=== PATIENT | male | born 1955 | race Caucasian/White ===

== ENCOUNTER → 2018-02-10 07:51 | Outpatient (CLI) | payer BC, SELFPAY ==
--- NOTE | 2018-02-10 08:13 | US_ITS ---
US Arterial Ankle Brachial Ind History: Bilateral claudication, hypertension, hyperlipidemia what is a normal toe brachial index] breast from a normal pressure is expected ORDERING PHYSICIAN: Zabrina Vizcarra MD PATIENT AGE: 62 years TECHNIQUE: Segmental pressures obtained of both right and left leg. These are compared to brachial blood pressure to yield index at each level sampled including summary SOHA. The data sheets from the procedure are available in PACS FINDINGS Rest study only performed today No prior studies available for comparison. Blood pressures reported are in millimeters mercury. RIGHT LEG SOHA = 1.2. RIGHT LEG TBI=0.7 Brachial BP: 143 Thigh BP: 146 Calf BP: 163 Ankle PT: 171 Ankle DP : 162 Digit =98 LEFT LEG SOHA = 1.2 LEFT LEG TBI= 0.6 Brachial BPD: 145 Thigh BP: 140 Calf BP: 172 Ankle PT:176 Ankle DP: 163 Digit = 81 Pulses and waveforms: Normal IMPRESSION: The ABIs as reported above are within normal limits. Waveforms and pulses are also unremarkable. The left tibia is slightly low at 0.6 with normal being greater than 0.65 which may indicate mild small vessel disease
--- NOTE | 2018-02-10 08:46 | US_ITS ---
US aorta HISTORY: Claudication of the lower extremities ITS.REASON: BILATERAL PAIN LOWER EXTREMITIES FINDINGS: The abdominal aorta has an unremarkable appearance. No evidence of aneurysm or obstruction. Proximal common iliacs are unremarkable. IMPRESSION: No evidence of abdominal aortic aneurysm
== END ==
PROVIDERS: PCP Family Medicine; Visit Provider Family Medicine
DX: M79.604 Pain in right leg (principal); M79.605 Pain in left leg
CPT/HCPCS: 76770; 93922

== ENCOUNTER → 2021-01-14 14:39 | Outpatient (CLI) | payer BC, SELFPAY ==
[2021-01-14 16:12] LABS: Basophils % 0.2 % (0.1-2.0); Eosinophils % 0.6 % (0.1-12.0); Lymphocytes # 0.4 K/mm3 (0.7-4.5); Lymphocytes % 7.5 % (10-50); Mean Corpuscular HGB Conc 32.5 g/dL (31.8-35.4); Mean Corpuscular Hemoglobin 29.1 pg (27.0-31.2); Mean Corpuscular Volume 89.5 fl (80-94); Mean Platelet Volume 8.4 fl (7.4-10.4); Monocytes # 0.3 K/mm3 (0.1-1.0); Monocytes % 6.5 % (1.7-9.3); Neutrophils # 4.4 K/mm3 (1.8-7.8); Neutrophils % 85.2 % (37.0-80.0); Platelet Count 171 K/mm3 (142-424); Red Blood Count 4.47 M/mm3 (4.60-6.20); Red Cell Distribution Width 14.1 % (11.5-17.5); White Blood Count 5.1 K/mm3 (4.8-10.8)
[2021-01-14 16:15] LABS: MANUAL DIFFERENTIAL MANUAL DIFFERENTIAL (MANUAL DIFF)
[2021-01-14 17:35] LABS: Chloride 93 mmol/L (98-107); Potassium 4.2 mmoL/L (3.5-5.1); Sodium 130 mmol/L (136-145)
[2021-01-14 17:38] LABS: Alanine Aminotransferase 138 U/L (12-78); Alkaline Phosphatase 136 U/L (38-126); Amylase 44 U/L (30-110); Anion Gap 17.2 mEq/L (5-15); Aspartate Amino Transferase 192 U/L (17-59); Bilirubin,Total 1.3 mg/dl (0.2-1.3); Blood Urea Nitrogen 41 mg/dl (9-20); Calcium 9.9 mg/dl (8.4-10.2); Carbon Dioxide 24 mmol/L (22.0-30.0); Estimated Glomerular Filt Rate 30 ml/min (>60); GFR (African American) 37 ML/MIN (>60); Glucose 143 mg/dl (74-100); Lipase 222 U/L (23-300)
[2021-01-14 17:39] LABS: Albumin Level 3.5 g/dl (3.5-5.0); Albumin/Globulin Ratio 1.5 (1.1-1.8); Globulin 2.4 g/dL (1.3-3.2); Total Protein,Serum 5.9 g/dl (6.3-8.2)
[2021-01-14 18:05] LABS: Lymphocytes % 8 % (10-50); Monocytes % 12 % (2-9); Neutrophils % 78 % (42-76); Total Cells Counted 100
[2021-01-14 18:06] LABS: Anisocytosis 1+; Hypochromasia 1+; Platelet Estimate Normal
== END ==
PROVIDERS: PCP Nurse Practitioner; Visit Provider Nurse Practitioner
DX: Z11.52 Encounter for screening for COVID-19 (principal); U07.1 COVID-19; R50.9 Fever, unspecified; R10.84 Generalized abdominal pain
CPT/HCPCS: 80053; 82150; 83690; 85007; 85025; 86677; C9803; U0003; U0005

== ENCOUNTER 2021-01-14 18:55 | Emergency (ER) | payer BC, SELFPAY ==
[2021-01-14 21:49] VITALS: BP 110/65; PULSE 78; RESP 24; TEMP 37.7; O2SAT 94; BMI 32.5
--- NOTE | 2021-01-14 21:57 | CT_ITS ---
PROCEDURE INFORMATION: Exam: CT Abdomen And Pelvis Without Contrast Exam date and time: 01/14/2021 9:57 PM Age: 65 years old Clinical indication: Localized; Other: Mid abdominal pain since Thursday. ; Additional info: Abd pain TECHNIQUE: Imaging protocol: Computed tomography of the abdomen and pelvis without contrast. Radiation optimization: All CT scans at this facility use at least one of these dose optimization techniques: automated exposure control; mA and/or kV adjustment per patient size (includes targeted exams where dose is matched to clinical indication); or iterative reconstruction. COMPARISON: AORTA US aorta 02/10/2018 8:46 AM FINDINGS: Heart: Trace pericardial fluid. Liver: Diffuse low-attenuation of the liver. No mass. Gallbladder and bile ducts: No calcified stones. No ductal dilation. Pancreas: Parenchymal enhancement is not evaluated without contrast. No ductal dilation. Spleen: Parenchymal enhancement is not evaluated without contrast. No splenomegaly. Adrenal glands: No mass. Kidneys and ureters: Fullness of the left renal pelvis without radiodense calcification. Normal ureters. Limited evaluation of renal parenchyma without contrast. Stomach and bowel: Diverticulosis coli without evidence for diverticulitis. Appendix: No evidence of appendicitis. Intraperitoneal space: No free air. No significant fluid collection. Vasculature: Calcified atherosclerosis. No aneurysm. Lymph nodes: No enlarged lymph nodes. Urinary bladder: No acute abnormality. Reproductive: Prostate is enlarged measuring 5.9 cm. Bones/joints: Degenerative changes of the spine. No fracture. Soft tissues: 2.3 x 1.9 cm fat containing right inguinal hernia. IMPRESSION: 1. Fullness of the left renal pelvis without radiodense calcification. Correlation with possible UPJ obstruction recommended. 2. Trace pericardial fluid. 3. Diverticulosis coli without evidence for diverticulitis. 4. Prostate is enlarged measuring 5.9 cm. 5. 2.3 x 1.9 cm fat containing right inguinal hernia.
[2021-01-14 22:11] LABS: Coronavirus 19, PCR Not Detected (NotDetected); Influenza A, PCR Not Detected (NotDetected); Influenza B, PCR Not Detected (NotDetected)
[2021-01-14 22:15] LABS: Basophils % 0.4 % (0.1-2.0); Eosinophils # 0.1 K/mm3 (0.0-0.4); Eosinophils % 1.1 % (0.1-12.0); Hematocrit 42.1 % (42.0-52.0); Hemoglobin 14.1 g/dL (14.1-18.0); Lymphocytes # 0.5 K/mm3 (0.7-4.5); Lymphocytes % 8.1 % (10-50); Mean Corpuscular HGB Conc 33.4 g/dL (31.8-35.4); Mean Corpuscular Hemoglobin 29.7 pg (27.0-31.2); Mean Corpuscular Volume 89.1 fl (80-94); Mean Platelet Volume 8.3 fl (7.4-10.4); Monocytes # 0.5 K/mm3 (0.1-1.0); Monocytes % 7.5 % (1.7-9.3); Neutrophils # 5.2 K/mm3 (1.8-7.8); Neutrophils % 82.9 % (37.0-80.0); Platelet Count 189 K/mm3 (142-424); Red Blood Count 4.73 M/mm3 (4.60-6.20); Red Cell Distribution Width 14.2 % (11.5-17.5); White Blood Count 6.3 K/mm3 (4.8-10.8)
[2021-01-14 22:22] LABS: Chloride 91 mmol/L (98-107); Sodium 131 mmol/L (136-145)
[2021-01-14 22:24] LABS: Alanine Aminotransferase 187 U/L (12-78); Amylase 58 U/L (30-110); Aspartate Amino Transferase 217 U/L (17-59); Blood Urea Nitrogen 37 mg/dl (9-20); Creatinine Clearance Estimated 40 mL/min (50-200); Estimated Glomerular Filt Rate 29 ml/min (>60); GFR (African American) 35 ML/MIN (>60)
[2021-01-14 22:25] LABS: Albumin Level 4.1 g/dl (3.5-5.0); Albumin/Globulin Ratio 1.2 (1.1-1.8); Alkaline Phosphatase 162 U/L (38-126); Bilirubin,Total 1.6 mg/dl (0.2-1.3); Calcium 10.6 mg/dl (8.4-10.2); Carbon Dioxide 26 mmol/L (22.0-30.0); Globulin 3.5 g/dL (1.3-3.2); Glucose 137 mg/dl (74-100); Lipase 194 U/L (23-300); Total Protein,Serum 7.6 g/dl (6.3-8.2)
[2021-01-14 22:41] LABS: Erythrocyte Sedimentation Rate 70 mm/hr (0-20)
[2021-01-14 22:43] LABS: C-Reactive Protein 286.4 mg/L (0-4)
--- NOTE | 2021-01-15 01:13 | HMH.EDRECH ---
ED Disposition Clinical Impression: MAN (acute kidney injury), Elevated liver enzymes Abdominal pain Qualifiers: Abdominal location: right upper quadrant Qualified Code(s): R10.11 - Right upper quadrant pain Disposition: Home, Self-Care Condition on Discharge: Good Instructions: DI for Abdominal Pain-Adult Additional Instructions: fluids and hold lisinopril and call pcp in am Referrals: Daisha Hendrickson APRN [Primary Care Provider] - - Critical Care Critical Care Time: No Attestation: On 01/14/21, the high probability of a clinically significant, sudden or life threatening deterioration of the following system(s) required my full and direct attention, intervention and personal management. The time I documented below is in addition to time spent performing reported procedures but includes the following listed in this critical care notation. Medical Decision Making - Medical Records Medical records reviewed: Yes: I reviewed the patient's medical records. - [place] Inquiry Pt receiving controlled substance: No Vital Signs: 01/14/21 21:49 Temperature 99.8 F H Temperature Source Oral Pulse Rate [Right Brachial] 78 Respiratory Rate 24 Blood Pressure [Right Arm] 110/65 Blood Pressure Mean [Right Arm] 80 Blood Pressure Source [Right Arm] Automatic Cuff Blood Pressure Position [Right Arm] Sitting 02 Sat by Pulse Oximetry 94 L Oxygen Delivery Method Room Air - Lab Data Lab results reviewed: Yes: I reviewed the patient's lab results. Lab Results 01/14/21 21:52: WBC 6.3, RBC 4.73, Hgb 14.1, Hct 42.1, MCV 89.1, MCH 29.7, MCHC 33.4, RDW 14.2, Plt Count 189, MPV 8.3, Neut % (Auto) 82.9 H, Lymph % (Auto) 8.1 L, [place] % (Auto) 7.5, Eos % (Auto) 1.1, Baso % (Auto) 0.4, Neut # (Auto) 5.2, Lymph # (Auto) 0.5 L, [place] # (Auto) 0.5, Eos # (Auto) 0.1, Baso # (Auto) 0.0, ESR 70 H 01/14/21 21:52: Sodium 131 L, Potassium 4.0, Chloride 91 L, Carbon Dioxide 26, Anion Gap 18.0 H, BUN 37 H, Creatinine 2.30 H, Estimated Creat Clear 40, Estimated GFR 29 L, Est GFR ( Amer) 35 L, Glucose 137 H, Calcium 10.6 H, Total Bilirubin 1.6 H, AST 217 H, ALT 187 H D, Alkaline Phosphatase 162 H, C-Reactive Protein 286.4 H, Total Protein 7.6 D, Albumin 4.1 D, Globulin 3.5 H, Albumin/Globulin Ratio 1.2, Amylase 58 D, Lipase 194 01/14/21 21:52: SARS-CoV-2 (PCR) Not detected, Influenza A Untype (PCR) Not detected, Influenza Type B (PCR) Not detected Result diagrams: 01/14/21 21:52 01/14/21 21:52 Orders (Tests/Meds): ED MEDICATIONS Generic Name Dose Route Start Last Admin Trade Name Freq PRN Reason Stop Dose Admin Sodium Chloride 1,000 mls @ 999 mls/hr 01/14/21 22:00 01/14/21 22:06 Sod Chlor 0.9% 1000ml Bag IV 01/14/21 23:00 999 mls/hr .Q1H1M BETO Administration Discontinued Medications Generic Name Dose Route Start Last Admin Trade Name Freq PRN Reason Stop Dose Admin Dexamethasone Sodium Phosphate 10 mg 01/14/21 21:59 01/14/21 22:06 Dexamethasone 4mg/Ml 5ml Mdv IV 01/14/21 22:00 10 mg ONCE ONE Administration Ketorolac Tromethamine 30 mg 01/14/21 21:58 01/14/21 22:06 Ketorolac 30mg/Ml Vial IV 01/14/21 21:59 30 mg ONCE ONE Administration Ondansetron HCl 4 mg 01/14/21 21:58 01/14/21 22:06 Ondansetron 4mg/2ml Vial IV 01/14/21 21:59 4 mg ONCE ONE Administration ORDERS Category Date Time Status Urinalysis and Microscopic Stat Lab 01/14/21 21:57 Ordered - CT Data CT Scan: Abdomen, Pelvis Time Received: 01:[address] Reviewed: Yes: I have viewed the radiologist's interpretation Preliminary Findings: Abnormal Medical Decision Narrative: possible gb dis with nonspecific ct - but has abn labs and will ask pt to hold lisinoprril and call pcp in am for more eval Recheck HPI - General Chief Complaint: Recheck/Abnormal Lab/Rx Stated Complaint: blood work # Were bad and ne ct Scan Time Seen by Provider: 01/15/21 01:13 Mode of Arrival: Family Vehicle Source of Informati
[2021-01-15 01:43] VITALS: BP 107/71; PULSE 73; RESP 18; TEMP 36.7; O2SAT 96
== END 2021-01-15 01:47 | disposition home or self-care (01) ==
PROVIDERS: Emergency Provider Emergency Medicine; PCP Nurse Practitioner
DX: N17.9 Acute kidney failure, unspecified (principal); R10.11 Right upper quadrant pain; R94.5 Abnormal results of liver function studies
CPT/HCPCS: 74176; 80053; 82150; 83690; 85025; 85651; 86140; 96365; 96375; 99283; C9803; J2405; U0003; U0005

== ENCOUNTER → 2021-01-15 13:37 | Outpatient (CLI) | payer BC, SELFPAY ==
[2021-01-15 14:19] LABS: Adenovirus,PCR Not Detected (NotDetected); Bordetella Pertussis Not Detected (NotDetected); Chlamydophila Pneumoniae, PCR Not Detected (NotDetected); Coronavirus 19, PCR Not Detected (NotDetected); Coronavirus 229E Not Detected (NotDetected); Coronavirus NL63 Not Detected (NotDetected); Coronavirus OC43 Not Detected (NotDetected); Coronovirus HKU1,PCR Not Detected (NotDetected); Human Metapneumovirus Not Detected (NotDetected); Influenza A, PCR Not Detected (NotDetected); Influenza AH1, 2009 Not Detected (NotDetected); Influenza AH1, PCR Not Detected (NotDetected); Influenza AH3,PCR Not Detected (NotDetected); Influenza B, PCR Not Detected (NotDetected); Mycoplasma Pneumoniae, PCR Not Detected (NotDetected); Parainfluenza 1, PCR Not Detected (NotDetected); Parainfluenza 2, PCR Not Detected (NotDetected); Parainfluenza 3, PCR Not Detected (NotDetected); Parainfluenza 4, PCR Not Detected (NotDetected); Respiratory Syncytial Virus Not Detected (NotDetected); Rhinovirus/Enterovirus Not Detected (NotDetected)
[2021-01-15 14:41] LABS: Alanine Aminotransferase 179 U/L (12-78); Albumin Level 3.6 g/dl (3.5-5.0); Albumin/Globulin Ratio 1.2 (1.1-1.8); Alkaline Phosphatase 137 U/L (38-126); Amylase 61 U/L (30-110); Anion Gap 17.9 mEq/L (5-15); Aspartate Amino Transferase 162 U/L (17-59); Bilirubin,Total 0.9 mg/dl (0.2-1.3); Blood Urea Nitrogen 43 mg/dl (9-20); Calcium 9.5 mg/dl (8.4-10.2); Carbon Dioxide 23 mmol/L (22.0-30.0); Chloride 90 mmol/L (98-107); Estimated Glomerular Filt Rate 38 ml/min (>60); GFR (African American) 46 ML/MIN (>60); Globulin 3.1 g/dL (1.3-3.2); Glucose 291 mg/dl (74-100); Lipase 211 U/L (23-300); Potassium 3.9 mmoL/L (3.5-5.1); Sodium 127 mmol/L (136-145); Total Protein,Serum 6.7 g/dl (6.3-8.2)
[2021-01-15 14:55] LABS: Basophils % 0.1 % (0.1-2.0); Eosinophils % 0.1 % (0.1-12.0); Hematocrit 37.5 % (42.0-52.0); Lymphocytes # 0.4 K/mm3 (0.7-4.5); Lymphocytes % 5.6 % (10-50); Mean Corpuscular Hemoglobin 29.6 pg (27.0-31.2); Mean Corpuscular Volume 89.7 fl (80-94); Mean Platelet Volume 9.4 fl (7.4-10.4); Monocytes # 0.3 K/mm3 (0.1-1.0); Monocytes % 4.9 % (1.7-9.3); Neutrophils % 89.2 % (37.0-80.0); Platelet Count 192 K/mm3 (142-424); Red Blood Count 4.18 M/mm3 (4.60-6.20); Red Cell Distribution Width 14.7 % (11.5-17.5); White Blood Count 6.7 K/mm3 (4.8-10.8)
[2021-01-15 15:02] LABS: MANUAL DIFFERENTIAL MANUAL DIFFERENTIAL (MANUAL DIFF)
[2021-01-15 16:36] LABS: Lymphocytes % 13 % (10-50); Monocytes % 8 % (2-9); Neutrophils % 79 % (42-76); Total Cells Counted 100
[2021-01-15 16:37] LABS: Anisocytosis 1+; Hypochromasia 1+; Platelet Estimate Normal
[2021-01-15 17:59] LABS: Hemoglobin 12.2 g/dL (14.1-18.0)
[2021-01-17 06:46] LABS: Hep A Ab, IgM Negative (Negative); Hepatitis B Core Antibody IgM Negative (Negative); Hepatitis B Surface Antigen Negative (Negative); Hepatitis C Antibody <0.1 s/co ratio (0.0-0.9)
== END ==
PROVIDERS: PCP Nurse Practitioner; Visit Provider Nurse Practitioner
DX: Z20.822 Contact with and (suspected) exposure to COVID-19 (principal); R94.5 Abnormal results of liver function studies
CPT/HCPCS: 36415; 80053; 80074; 82150; 83690; 85007; 85025; 86677; 87581; 87633; 87798

== ENCOUNTER → 2021-01-18 08:51 | Outpatient (CLI) | payer BC, SELFPAY ==
--- NOTE | 2021-01-18 08:53 | US_ITS ---
PROCEDURE: US ABDOMEN LIMITED CLINICAL INDICATION: PERIUMBILICAL ABD PAIN COMPARISON: CT CT ABDOMEN PELVIS WO CON from 01/14/2021 FINDINGS: PANCREAS: Pancreas is not well delineated due to overlying bowel gas. CT or MRI without and with contrast with pancreatic protocol may provide further evaluation if clinically desired. LIVER: Diffuse increased echogenicity of the liver with poor through transmission of sound consistent with hepatic steatosis. There is appropriate direction of blood flow within non dilated portal vein. A 2 cm hypoechoic areas present in the central aspect of the right hepatic lobe. There is enhanced through transmission of sound. This area is fairly well defined and is anterior to the portal vein. RIGHT KIDNEY: Unremarkable. Normal size and echogenicity. No hydronephrosis GALLBLADDER: No gallstones, gallbladder wall thickening, pericholecystic fluid, or biliary dilatation. Gallbladder is slightly distended. Common bile duct is 2 mm in diameter. IMPRESSION: Mildly distended gallbladder. No gallstones apparent. No biliary dilatation. Indeterminate 2 cm hypoechoic lesion of the central aspect of the liver. MRI with hemangioma protocol may provide further evaluation. Dictated by: Mejia Morocho MD 01/18/2021 13:39 Mejia Morocho MD in [place] 01/18/2021 13:39
== END ==
PROVIDERS: PCP Nurse Practitioner; Visit Provider Nurse Practitioner
DX: R10.33 Periumbilical pain (principal)
CPT/HCPCS: 76705

== ENCOUNTER → 2021-01-30 07:41 | Outpatient (CLI) | payer BC, SELFPAY ==
--- NOTE | 2021-01-30 07:49 | CT_ITS ---
PROCEDURE: CT ABDOMEN WO/W CON CLINICAL HISTORY: ABN CT SCAN KIDNEY,ELEVATED LIPASE COMPARISON: CT CT ABDOMEN PELVIS WO CON from 01/14/2021 US US ABDOMEN LIMITED from 01/18/2021 TECHNIQUE: 75 mL Isovue 370. Images performed without and with contrast with delayed images Axial images obtained with sagittal and coronal reformats. All CT scans at the facility use one or more dose reduction, viz: automated exposure control, ma/kV adjustment per patient size (including targeted exams where dose is matched to indication, i.e. head), or iterative reconstruction technique. FINDINGS: There is minimal thickening of the pericardium anteriorly not significantly changed The liver has an unremarkable appearance. No areas of enhancement or lack of enhancement apparent. There is a small small periportal lymph nodes measuring 2.1 x 1.2 cm which may have been the abnormality noted on the ultrasound. The gallbladder is distended. No renal or ureteral calculi. No renal mass. The spleen, adrenal glands, and pancreas have an unremarkable appearance. No intestinal obstruction or free air. Unremarkable appendix. There is some mild stranding of the pericolic fat in the left lower quadrant. Mild diverticulitis is a consideration. Colonic diverticulosis is present involving the splenic flexure descending colon and sigmoid colon. There is mild nonspecific thickening of the urinary bladder wall. The prostate is enlarged at 5.2 by 5 cm. No acute bony findings. IMPRESSION: 1. No liver lesion evident. The abnormality noted on the ultrasound may be due to a periportal lymph node. 2. Possible mild diverticulitis in the distal descending colon with colonic diverticulosis noted. 3. Enlarged prostate with mild thickening of the urinary bladder wall. Dictated by: Mejia Morocho MD 01/31/2021 18:41 Mejia Morocho MD in [facility] 01/31/2021 18:41
[2021-01-30 09:11] LABS: Blood Urea Nitrogen 8 mg/dl (9-20); Estimated Glomerular Filt Rate 98 ml/min (>60); GFR (African American) 118 ML/MIN (>60)
[2021-01-31 18:16] LABS: H. pylori Breath Test Positive (Negative)
== END ==
PROVIDERS: PCP Nurse Practitioner; Visit Provider Family Medicine
DX: R10.13 Epigastric pain (principal); R10.84 Generalized abdominal pain; R50.9 Fever, unspecified; R74.8 Abnormal levels of other serum enzymes; R93.429 Abnormal radiologic findings on diagnostic imaging of unspecified kidney
CPT/HCPCS: 36415; 74170; 82565; 83013; 84520; Q9967

== ENCOUNTER → 2022-01-17 10:52 | Outpatient (CLI) | payer BC, SELFPAY ==
[2022-01-17 19:42] LABS: Alanine Aminotransferase 73 U/L (12-78); Albumin Level 4.5 g/dl (3.5-5.0); Albumin/Globulin Ratio 1.7 (1.1-1.8); Alkaline Phosphatase 44 U/L (38-126); Anion Gap 17.2 mEq/L (5-15); Aspartate Amino Transferase 73 U/L (17-59); Bilirubin,Total 0.4 mg/dl (0.2-1.3); Blood Urea Nitrogen 17 mg/dl (9-20); Calcium 9.5 mg/dl (8.4-10.2); Carbon Dioxide 26 mmol/L (22.0-30.0); Chloride 101 mmol/L (98-107); Estimated Glomerular Filt Rate 75 ml/min (>60); GFR (African American) 91 ML/MIN (>60); Globulin 2.6 g/dL (1.3-3.2); Glucose 103 mg/dl (74-100); Potassium 4.2 mmoL/L (3.5-5.1); Sodium 140 mmol/L (136-145); Total Protein,Serum 7.1 g/dl (6.3-8.2)
[2022-01-17 20:11] LABS: Prostate Specific Ag Screen 2.8 ng/ml (0.0-4.0); Thyroid Stimulating Hormone 2.33 uIU/mL (0.465-4.68)
== END ==
PROVIDERS: PCP Family Medicine; Visit Provider Family Medicine
DX: E03.9 Hypothyroidism, unspecified (principal); R74.8 Abnormal levels of other serum enzymes; N40.0 Benign prostatic hyperplasia without lower urinary tract symptoms; Z12.5 Encounter for screening for malignant neoplasm of prostate
CPT/HCPCS: 80053; 84443; G0103

== ENCOUNTER → 2022-07-15 23:00 | Outpatient (CLI) | payer BC, SELFPAY ==
[2022-07-15 18:38] LABS: Alanine Aminotransferase 67 U/L (12-78); Albumin Level 4.9 g/dl (3.5-5.0); Albumin/Globulin Ratio 1.9 (1.1-1.8); Alkaline Phosphatase 37 U/L (38-126); Anion Gap 16.1 mEq/L (5-15); Aspartate Amino Transferase 63 U/L (17-59); Bilirubin,Total 0.9 mg/dl (0.2-1.3); Blood Urea Nitrogen 21 mg/dl (9-20); Calcium 9.6 mg/dl (8.4-10.2); Carbon Dioxide 25 mmol/L (22.0-30.0); Chloride 101 mmol/L (98-107); Estimated Glomerular Filt Rate 67 ml/min (>60); GFR (African American) 82 ML/MIN (>60); Globulin 2.6 g/dL (1.3-3.2); Glucose 89 mg/dl (74-100); Potassium 4.1 mmoL/L (3.5-5.1); Sodium 138 mmol/L (136-145); Total Protein,Serum 7.5 g/dl (6.3-8.2)
== END ==
PROVIDERS: PCP Family Medicine; Visit Provider Family Medicine
DX: E03.9 Hypothyroidism, unspecified (principal); I10 Essential (primary) hypertension; K75.81 Nonalcoholic steatohepatitis (NASH); R74.8 Abnormal levels of other serum enzymes
CPT/HCPCS: 80053

== ENCOUNTER → 2023-01-14 12:00 | Outpatient (CLI) | payer MEDICARE, BC, SELFPAY ==
[2023-01-14 18:19] LABS: Chloride 104 mmol/L (98-107); Sodium 139 mmol/L (136-145)
[2023-01-14 18:20] LABS: Potassium 4.3 mmoL/L (3.5-5.1)
[2023-01-14 18:22] LABS: Alanine Aminotransferase 57 U/L (12-78); Alkaline Phosphatase 40 U/L (38-126); Anion Gap 16.3 mEq/L (5-15); Aspartate Amino Transferase 49 U/L (17-59); Bilirubin,Total 0.6 mg/dl (0.2-1.3); Blood Urea Nitrogen 25 mg/dl (9-20); Calcium 10.1 mg/dl (8.4-10.2); Carbon Dioxide 23 mmol/L (22.0-30.0); Cholesterol 162 mg/dl (140-200); Estimated Glomerular Filt Rate 51 ml/min (>60); GFR (African American) 62 ML/MIN (>60); Glucose 103 mg/dl (74-100); Triglycerides 315 mg/dl (30-150); VLDL Cholesterol 63 mg/dL (0-40)
[2023-01-14 18:23] LABS: Albumin Level 4.6 g/dl (3.5-5.0); Albumin/Globulin Ratio 1.8 (1.1-1.8); Chol/HDL Ratio 6.8 (1-3.5); Globulin 2.5 g/dL (1.3-3.2); HDL Cholesterol 24 mg/dl (40-60); Total Protein,Serum 7.1 g/dl (6.3-8.2)
== END ==
PROVIDERS: PCP Family Medicine; Visit Provider Family Medicine
DX: I10 Essential (primary) hypertension
CPT/HCPCS: 80053; 80061

== ENCOUNTER 2023-07-14 18:48 | Outpatient (CLI) | payer MEDICARE, BC, SELFPAY ==
[2023-07-14 19:10] LABS: Basophils # 0.1 K/mm3 (0-0.2); Eosinophils # 0.1 K/mm3 (0.0-0.4); Eosinophils % 1.5 % (0.1-12.0); Hematocrit 48.4 % (42.0-52.0); Hemoglobin 15.9 g/dL (14.1-18.0); Lymphocytes # 2.7 K/mm3 (0.7-4.5); Mean Corpuscular HGB Conc 32.9 g/dL (31.8-35.4); Mean Corpuscular Hemoglobin 30.4 pg (27.0-31.2); Mean Corpuscular Volume 92.6 fl (80-94); Mean Platelet Volume 9.3 fl (7.4-10.4); Monocytes # 0.6 K/mm3 (0.1-1.0); Monocytes % 8.1 % (1.7-9.3); Neutrophils % 53.5 % (37.0-80.0); Platelet Count 206 K/mm3 (142-424); Red Blood Count 5.23 M/mm3 (4.60-6.20); Red Cell Distribution Width 14.8 % (11.5-17.5); White Blood Count 7.5 K/mm3 (4.8-10.8)
[2023-07-14 19:36] LABS: Alanine Aminotransferase 69 U/L (12-78); Albumin/Globulin Ratio 1.9 (1.1-1.8); Alkaline Phosphatase 40 U/L (38-126); Anion Gap 17.3 mEq/L (5-15); Aspartate Amino Transferase 65 U/L (17-59); Bilirubin,Total 0.7 mg/dl (0.2-1.3); Blood Urea Nitrogen 16 mg/dl (9-20); Calcium 10.1 mg/dl (8.4-10.2); Carbon Dioxide 25 mmol/L (22.0-30.0); Chloride 103 mmol/L (98-107); Estimated Glomerular Filt Rate 75 ml/min (>60); GFR (African American) 91 ML/MIN (>60); Globulin 2.6 g/dL (1.3-3.2); Glucose 109 mg/dl (74-100); Potassium 4.3 mmoL/L (3.5-5.1); Sodium 141 mmol/L (136-145); Total Protein,Serum 7.6 g/dl (6.3-8.2)
[2023-07-17 16:58] LABS: Thyroid Stimulating Hormone 4.22 uIU/mL (0.465-4.68)
== END 2023-07-14 23:59 ==
PROVIDERS: PCP Family Medicine; Visit Provider Family Medicine
DX: I10 Essential (primary) hypertension (principal); H35.60 Retinal hemorrhage, unspecified eye; E03.9 Hypothyroidism, unspecified
CPT/HCPCS: 80053; 84443; 85025

== ENCOUNTER 2024-02-10 18:52 | Outpatient (CLI) | payer MEDICARE, BC, SELFPAY | END 2024-02-10 23:59 | disposition home or self-care (01) | LOC: LAB.DROPOF 18:54 | PROVIDERS: PCP Nurse Practitioner; Visit Provider Nurse Practitioner | DX: Z02.9 Encounter for administrative examinations, unspecified (principal) ==

== ENCOUNTER 2024-02-10 18:53 | Outpatient (CLI) | payer MEDICARE, BC, SELFPAY ==
[2024-02-10 19:53] LABS: Creatinine,Urine Random 80 mg/dL (Not Estab.); Microalbumin < 6.000 mg/L (0-16.7)
[2024-02-10 19:56] LABS: Alanine Aminotransferase 39 U/L (12-78); Albumin/Globulin Ratio 1.9 (1.1-1.8); Alkaline Phosphatase 25 U/L (38-126); Anion Gap 10.2 mEq/L (5-15); Aspartate Amino Transferase 41 U/L (17-59); Bilirubin,Total 0.7 mg/dl (0.2-1.3); Blood Urea Nitrogen 31 mg/dl (9-20); Calcium 10.2 mg/dl (8.4-10.2); Carbon Dioxide 23 mmol/L (22.0-30.0); Chloride 102 mmol/L (98-107); Chol/HDL Ratio 4.2 (1-3.5); Cholesterol 181 mg/dl (140-200); Estimated Glomerular Filt Rate 61 ml/min (>60); GFR (African American) 73 ML/MIN (>60); Globulin 2.7 g/dL (1.3-3.2); Glucose 108 mg/dl (74-100); HDL Cholesterol 43 mg/dl (40-60); Potassium 4.2 mmoL/L (3.5-5.1); Sodium 131 mmol/L (136-145); Total Protein,Serum 7.7 g/dl (6.3-8.2); Triglycerides 143 mg/dl (30-150); Uric Acid 5.1 mg/dl (3.5-8.5); VLDL Cholesterol 29 mg/dL (0-40)
[2024-02-10 20:02] LABS: Basophils % 0.4 % (0.1-2.0); Eosinophils % 0.4 % (0.1-12.0); Hemoglobin 14.5 g/dL (14.1-18.0); Lymphocytes # 2.1 K/mm3 (0.7-4.5); Mean Corpuscular HGB Conc 36.2 g/dL (31.8-35.4); Mean Corpuscular Hemoglobin 32.1 pg (27.0-31.2); Mean Corpuscular Volume 88.6 fl (80-94); Mean Platelet Volume 9.7 fl (7.4-10.4); Monocytes # 0.7 K/mm3 (0.1-1.0); Monocytes % 6.7 % (1.7-9.3); Neutrophils # 7.5 K/mm3 (1.8-7.8); Neutrophils % 72.5 % (37.0-80.0); Platelet Count 222 K/mm3 (142-424); Red Blood Count 4.51 M/mm3 (4.60-6.20); White Blood Count 10.3 K/mm3 (4.8-10.8)
[2024-02-10 20:07] LABS: Direct LDL Cholesterol 103.84 mg/dL (100-129)
[2024-02-10 20:13] LABS: 25-OH Vitamin D, Total 39.2 ng/mL (30-100)
[2024-02-10 20:14] LABS: Free T4 (Free Thyroxine) 1.37 ng/dl (0.78-2.19)
[2024-02-10 20:22] LABS: Hemoglobin A1C 5.8 % (4.0-6.0)
[2024-02-10 20:26] LABS: Thyroid Stimulating Hormone 1.38 uIU/mL (0.465-4.68)
[2024-02-10 20:45] LABS: Vitamin B12 945 pg/mL (239-931)
== END 2024-02-10 23:59 | disposition home or self-care (01) ==
LOC: LAB.DROPOF 18:55
PROVIDERS: PCP Nurse Practitioner; Visit Provider Nurse Practitioner
DX: E03.9 Hypothyroidism, unspecified (principal); E79.0 Hyperuricemia without signs of inflammatory arthritis and tophaceous disease; E11.9 Type 2 diabetes mellitus without complications; E55.9 Vitamin D deficiency, unspecified; Z12.5 Encounter for screening for malignant neoplasm of prostate; E78.5 Hyperlipidemia, unspecified; I10 Essential (primary) hypertension
CPT/HCPCS: 80053; 80061; 82043; 82306; 82570; 82607; 83036; 84439; 84443; 84550; 85025; G0103

== ENCOUNTER 2024-03-02 09:43 | Outpatient (CLI) | payer MEDICARE, BC, SELFPAY ==
--- NOTE | 2024-03-02 09:48 | XR_ITS ---
PROCEDURE INFORMATION: Exam: XR Lumbosacral Spine Exam date and time: 03/02/2024 9:52 AM Age: 68 years old Clinical indication: Pain; Sciatica TECHNIQUE: Imaging protocol: Radiologic exam of the lumbosacral spine. Views: 2 or 3 views. COMPARISON: CT ABDOMEN PELVIS WO CON 01/14/2021 10:10 PM FINDINGS: Bones/joints: Multilevel moderate to moderately severe degenerative disc and joint space changes most pronounced at L5/S1. Vertebral body heights grossly preserved. No acute fracture. Normal alignment. Soft tissues: Unremarkable. IMPRESSION: No acute findings. Degenerative changes.
== END 2024-03-02 23:59 | disposition home or self-care (01) ==
LOC: RAD 09:45
PROVIDERS: PCP Family Medicine; Visit Provider Family Medicine
DX: M54.32 Sciatica, left side (principal)
CPT/HCPCS: 72100

== ENCOUNTER 2024-03-29 08:06 | Outpatient (CLI) | payer MEDICARE, BC, SELFPAY ==
--- NOTE | 2024-03-29 08:07 | MR_ITS ---
FINAL REPORT TECHNIQUE: Multiplanar and multisequence MR imaging was performed through the lumbar spine before and after contrast administration. CLINICAL HISTORY: left sciatica, lumbar disc 18 ml prohance COMPARISON: None FINDINGS: The vertebral bodies are normally aligned. The vertebral body heights are preserved. There is no bone marrow edema. There is no abnormal bone marrow enhancement. The cord terminates at L1. There is normal signal within the distal cord. There is no abnormal enhancement in the distal cord. There is no acute paraspinal abnormality. There is no loculated fluid collection. L1-L2: Annular disc bulge. No central canal stenosis or neuroforaminal narrowing. L2-L3: Annular disc bulge with degenerative endplate changes and facet osteoarthropathy. No central canal stenosis. Mild right and moderate left neuroforaminal narrowing. L3-L4: Annular disc bulge with degenerative endplate changes and facet osteoarthropathy. Mild central canal stenosis. Moderate left greater than right neuroforaminal narrowing. L4-L5: Annular disc bulge with degenerative endplate changes and facet osteoarthropathy. Appears to be left foraminal extrusion. No central canal stenosis. Mild right and severe left neuroforaminal narrowing with contact of the exiting nerve root by the extruded disc. L5-S1: No central canal stenosis. Bilateral neuroforaminal narrowing related to lateral disc osteophyte complex. IMPRESSION: Left foraminal disc extrusion contacting the exiting nerve root. Mild degenerative disease at other levels. No abnormal enhancement. Reviewed, Interpreted and Dictated by Britta Syed MD Transcribed by Ebony Mohan Authenticated and [facility]
[2024-03-29 08:45] LABS: Blood Urea Nitrogen 30 mg/dl (9-20); Estimated Glomerular Filt Rate 55 ml/min (>60); GFR (African American) 67 ML/MIN (>60)
[2024-03-29] MEDS: GADOTERIDOL INJ 20ML SYRINGE 18 ML IV (09:26)
[2024-03-29] MEDS: SODIUM CHLORIDE 0.9% 10ML SYR (RAD ONLY) 10 ML IV (09:26)
== END 2024-03-29 23:59 | disposition home or self-care (01) ==
LOC: RAD 08:07
PROVIDERS: PCP Family Medicine; Visit Provider Family Medicine
DX: M54.32 Sciatica, left side (principal)
CPT/HCPCS: 36415; 72158; 82565; 84520; A9576

== ENCOUNTER 2024-09-13 12:19 | Outpatient (CLI) | payer MEDICARE, BC, SELFPAY ==
[2024-09-13 19:58] LABS: Albumin Level 4.8 g/dl (3.5-5.0); Chloride 100 mmol/L (98-107); Potassium 4.2 mmoL/L (3.5-5.1); Sodium 132 mmol/L (136-145)
[2024-09-13 20:00] LABS: Blood Urea Nitrogen 23 mg/dl (9-20); Estimated Glomerular Filt Rate 55 ml/min (>60); GFR (African American) 67 ML/MIN (>60)
[2024-09-13 20:01] LABS: Alanine Aminotransferase 44 U/L (12-78); Albumin/Globulin Ratio 2.2 (1.1-1.8); Alkaline Phosphatase 36 U/L (38-126); Anion Gap 13.2 mEq/L (5-15); Aspartate Amino Transferase 42 U/L (17-59); Bilirubin,Total 0.5 mg/dl (0.2-1.3); Calcium 9.6 mg/dl (8.4-10.2); Carbon Dioxide 23 mmol/L (22.0-30.0); Globulin 2.2 g/dL (1.3-3.2); Glucose 90 mg/dl (74-100)
[2024-09-13 20:26] LABS: Thyroid Stimulating Hormone 4.08 uIU/mL (0.465-4.68)
== END 2024-09-13 23:59 | disposition home or self-care (01) ==
LOC: LAB.DROPOF 09-15 12:21
PROVIDERS: PCP Family Medicine; Visit Provider Family Medicine
DX: E03.9 Hypothyroidism, unspecified (principal); I10 Essential (primary) hypertension
CPT/HCPCS: 80053; 84443

== ENCOUNTER 2025-03-28 08:17 | Outpatient (CLI) | payer MEDICARE, BC, SELFPAY ==
[2025-03-28 15:09] LABS: Hematocrit 44.4 % (42.0-52.0); Hemoglobin 14.8 g/dL (14.1-18.0); Immature Granulocytes % 0.2 %; Mean Corpuscular HGB Conc 33.3 g/dL (31.8-35.4); Mean Corpuscular Hemoglobin 29.2 pg (27.0-31.2); Mean Corpuscular Volume 87.6 fl (80-94); Nucleated Red Blood Cells % 0 %; Platelet Count 246 K/mm3 (142-424); Red Blood Count 5.07 M/mm3 (4.60-6.20); Red Cell Distribution Width-SD 48.0 fL; White Blood Count 6.3 K/mm3 (4.8-10.8)
[2025-03-28 16:16] LABS: Albumin Level 5.0 g/dl (3.5-5.0); Chloride 96 mmol/L (98-107); Potassium 4.3 mmoL/L (3.5-5.1); Sodium 135 mmol/L (136-145)
[2025-03-28 16:18] LABS: Alanine Aminotransferase 59 U/L (12-78); Anion Gap 18.3 mEq/L (5-15); Aspartate Amino Transferase 54 U/L (17-59); Blood Urea Nitrogen 20 mg/dl (9-20); Carbon Dioxide 25 mmol/L (22.0-30.0); Creatinine,Serum 1.10 mg/dl (0.66-1.25); Estimated Glomerular Filt Rate 67 ml/min (>60); GFR (African American) 81 ML/MIN (>60)
[2025-03-28 16:19] LABS: Albumin/Globulin Ratio 1.8 (1.1-1.8); Alkaline Phosphatase 37 U/L (38-126); Bilirubin,Total 0.7 mg/dl (0.2-1.3); Calcium 9.7 mg/dl (8.4-10.2); Globulin 2.8 g/dL (1.3-3.2); Glucose 119 mg/dl (74-100); Total Protein,Serum 7.8 g/dl (6.3-8.2)
[2025-03-28 16:46] LABS: Thyroid Stimulating Hormone 3.62 uIU/mL (0.465-4.68)
--- OUTSIDE RECORDS SUMMARY | 2025-03-29 10:04 | XMS_ITS | Encounter Summary ---
Author Organization [facility] [address] Care Team Providers Care Train Crew Member Name Role Phone Aide Clay Primary Care Provider [phone] Encounter Details Date Type Department Care Team (Late st Contact Info) Description 02/22/2019 Lab Requisition [facility] [place], [place] [id number] Amanda Chambers MD [address] [place] [address] Encounter for screening for malignant neoplasm of colon; Diverticulosis of large intestine without perforation or abscess without bleeding; Gastrointestinal hemorrhage, unspecified Social History Tobacco Use Types Packs/Day Years Used Date Smoking Tobacco: Never Assessed Sex and Gender Information Value Date Recorded Sex Assigned at Not on file Legal Sex Male 2:51 PM EDT Gender Identity Not on file Sexual Orientation Not on file documented as of this encounter Plan of Treatment Not on file documented as of this encounter Procedures Procedure Name Priority Date/Time Associated Diagnosis Comments PATHOLOGY TISSUE REQUEST Routine 02/22/2019 10:00 AM EDT Encounter for screening for malignant neoplasm of colon Diverticulosis of large intestine without perforation or abscess without bleeding Gastrointestinal hemorrhage, unspecified documented in this encounter Results * PATHOLOGY TISSUE REQUEST (02/22/2019 10:00 AM EDT) CASE REPORT Surgical Pathology Case: [id number] Authorizing Provider: Amanda Chambers MD Collected: 02/22/2019 1000 Ordering Location: [facility] Received: 02/22/2019 1511 Pathologist: Meron Keith MD Specimen: Large Intestine, Left/Descending Colon 02/23/2019 10:02 AM EDT [facility] CLINICAL HISTORY Screening colonoscopy. This is not their first colonoscopy. 02/23/2019 10:02 AM EDT [facility] FINAL DIAGNOSIS Descending colon, biopsy: - Benign colonic mucosa with non-specific chronic inflammation. - No evidence of chronic idiopathic inflammatory bowel disease. This case was reviewed by additional departmental pathologist with diagnostic agreement. /DB 02/23/2019 10:02 AM EDT [facility] at 1002 EDT GROSS DESCRIPTION Received in formalin labeled with the patient s name and d escending colon biopsy are five fragments of roberson tissue ranging from 0.2 to 0.4 cm in greatest dimension. Entirely submitted in one cassette. /ZN 02/23/2019 10:02 AM EDT [facility] MICROSCOPIC DESCRIPTION Microscopic examination is performed and the findings corroborate the diagnosis. 02/23/2019 10:02 AM EDT [facility] EMBEDDED IMAGES 02/23/2019 10:02 AM EDT [facility] Tissue DESCENDING COLON STRUCTURE / Unknown 02/22/2019 10:00 AM EDT 02/22/2019 3:11 PM EDT us Amanda Chambers MD PATHOLOGY ORDERABLES Final Result [facility] [address] [place] [address] documented in this encounter Visit Diagnoses Diagnosis Encounter for screening for malignant neoplasm of colon Special screening for malignant neoplasms, colon Diverticulosis of large intestine without perforation or abscess without bleeding Diverticulosis of colon (without mention of hemorrhage) Gastrointestinal hemorrhage, unspecified documented in this encounter Care Teams Train Crew Member Relationship Specialty Start Date End Date Aide Clay [address] [facility] [address] [facility] [address] PCP - General Family Medicine 12/10/18 documented as of this encounter
--- OUTSIDE RECORDS SUMMARY | 2025-03-29 10:04 | XMS_ITS | Encounter Summary ---
Author Organization [place] [address] Care Team Providers Care Mgmt Consultant Name Role Phone Aide Clay Primary Care Provider [phone] Encounter Details Date Type Department Care Team (Late st Contact Info) Description 02/22/2019 Orders Only SEP Gastro [facility] [address] [facility] ([place], [place]) [address] [place], [place] [id number] Amanda Chambers MD [address] [place] [address] Social History Tobacco Use Types Packs/Day Years [...] Procedure Name Priority Date/Time Associated Diagnosis Comments [facility] COLONOSCOPY Routine 02/22/2019 10:0 0 AM EDT documented in this encounter Results * [facility] COLONOSCOPY (02/22/2019 10:00 AM EDT) 02/22/2019 10:0 0 AM EDT Impressions [facility] - 02/22/2019 11:26 AM EDT Severe diverticulosis of the left. Altered mucosal texture, abnormal vascularity, erosions (few), erythema and friability in the distal descending colon. (Biopsy, Injection, Biopsy). Plan: Follow up pathology results. Colonoscopy in 5 or 10 years depending on pathology results. Avoid constipation, increase water and fiber intake. This section is an excerpt of the full report. us Amanda Chambers MD GI PROCEDURE ORDERABLES Fin al Result [facility] [address] [place] [address] documented in this encounter Visit Diagnoses Not on filedocumented in this encounter Care Teams Mgmt Consultant Relationship Specialty Start Date End Date Aide Clay [address] [place] [address] [address] [place] [address] PCP - General Family Medicine 12/10/18 documented as of this encounter
--- OUTSIDE RECORDS SUMMARY | 2025-03-29 10:04 | XMS_ITS | Clinical Summary ---
Author Organization [facility] Address [address] [place] [address] Phone Care Team Providers Care Ncr Operator Name Role Phone ObedAide mckinney Primary Care Provider [phone] Allergies No known active allergies Medications VITAMIN D3 50 mcg (2,000 unit) Oral Tablet Take 2 Capsules by mouth every morning. 1 Active allopurinoL (ZYLOPRIM) 300 mg Oral Tablet Take 300 mg by mouth nightly. 2 Active fenofibrate (TRICOR) 145 mg Oral Tablet Take 145 mg by mouth every morning. 2 Active LEVOthyroxine (SYNTHROID) 125 mcg Oral Tablet Take 125 mcg by mouth every morning. 2 Active lisinopriL (PRINIVIL;ZESTR IL) 30 mg Oral Tablet Take 30 mg by mouth every morning. 1 Active metoprolol (LOPRESSOR) 25 mg Oral Tablet Take 25 mg by mouth nightly. 2 Active omega-3 acid ethyl esters (LOVAZA) 1 gram Oral Capsule 2 Active rosuvastatin (CRESTOR) 20 mg Oral Tablet Take 20 mg by mouth nightly. 2 Active Coenzyme Q10 100 mg Oral Capsule Take 1 Capsule by mouth daily. 1 Active MULTIVITAMIN ORAL Take by mouth. Activ e FIBER-CAPS, PSYLLIUM HUSK, ORAL Take 1 Capsule by mouth 2 times daily. Active vit C/E/Zn/coppr/florecita tein/zeaxan (PRESERVISION AREDS-2 ORAL) Take 1 Tablet by mouth 2 times daily. Active diphenhydrAMINE (BENADRYL) 25 mg Oral Tablet Take by mouth every 6 hours as needed. Active vitamin A 2,400 mcg Oral Capsule Take 8,000 Units by mouth daily. Active tocopherol acetate (VITAMIN E) 400 unit Oral Capsule Take by mouth daily. Active oxyCODONE (ROXICODONE) 5 mg Oral Tablet Take 1-2 Tablets by mouth every 4 hours as needed for Major Surgery/Trauma (G89.18). 20 Tablet 2 Active Additional Information Patient not taking.Reason: Pt electing to not take the medication, Reported on 10/02/2021 fluticasone propionate (FLONASE) 50 mcg/actuation Nasl [place], Suspension 1 [place] in each nostril 2 times daily. 2 Active Active Problems Problem Noted Date Diagnosed Date Left shoulder pain 05/07/2021 Tear of left rotator cuff 05/07/2021 Osteoarthritis of AC (acromioclavicular) joint 0 05/07/2021 Biceps tendinitis of left upper extremity 2021 Surgical History Surgery Date Site/Laterality Comments COLONOSCOPY DENTAL SURGERY SHOULDER ARTHROSCOPY 07/08/2021 Left Left shoulder arthroscopic superior capsular reconstruction, rotator cuff repair, arthroscopic subacromial decompression, [place]; Surgeon: Graham Borden MD; Location: [facility]; Service: Orthopedics Medical devices from this surgery are in the Medical Devices section. SHOULDER ARTHROSCOPY 07/08/2021 Left . ; Surgeon: Graham Borden MD; Location: [facility]; Service: Orthopedics Medical devices from this surgery are in the Medical Devices section. Medical History Medical History Date Comments Former smoker quit ~1987 History of snoring Hyperlipidemia Hypertension Heartburn past hx Thyroid disease Wears glasses Family History Medical History Relation Name Comments Thyroid Disease Brother 1 Thyroid Disease Brother 2 Heart Disease Father High Blood Pressure Father High Cholesterol Father Thyroid Disease Father Heart Disease Mother High Blood Pressure Mother High Cholesterol Mother Anesth Problems Neg Hx Relation Name Status Comments Brother 1 Alive Brother 2 Alive Brother 3 Alive Father Alive Mother Sister Alive Social History Tobacco Use Types Packs/Day Years Used Date Smoking Tobacco: Former Cigarettes Q uit: 1987 Smokeless Tobacco: Never Alcohol Use Standard Drinks/Week Comments Not Currently 0 (1 standard drink = 0.6 oz pur e alcohol) occ beer Sex and Gender Information Value Date Recorded Sex Assigned at Not on file Legal Sex Male 2:51 PM EDT Gender Identity Not on file Sexual Orientation Not on file Last Filed Vital Signs Vital Sign Reading Time Taken Comments Blood Pressure 124/76 07/08/2021 11:40 AM EST Pulse 83 07/08/2021 11:40 AM EST Temperature 36.1 C (97 F) 07/08/2021 11:40 AM EST Respiratory Rate 18 07/08/2021 11:40 AM EST Oxygen Saturation 93% 07/08/2021 11:40 AM EST Inhaled Oxygen Concentration - - Weight 90.5 kg (199 lb 9.6 oz) 07/08/2021 7:43 A M EST Height 162.6 cm (5' 4 ) 07/08/2021 7:43 AM EST Body Mass Index 34.26 07/08/2021 7:43 AM EST Plan of Treatment Health Maintenance Due Date Last Done Comments Annual Wellness Exam 1960 Hepatitis C Screening 09/03/1975 DTaP/TDaP/Td (1 - Tdap) 07/08/1996 07/07/1996 Cologuard 2002 FIT 2002 Sigmoidoscopy 2002 Virtual Colonography 2002 Pneumococcal Vaccine 50+ (1 of 1 - PCV) 09/03/2007 Zoster (1 of 2) 09/03/2007 COVID-19 Vaccine ( - 2024-2 6 season) 2025 Influenza Vaccine (#1) 2025 Colon Cancer Screening 02/22/2029 Colonoscopy 02/22/2029 02/22/2019 Hepatitis B Vaccine Aged Out No longe r eligible based on patient's age to complete this topic Meningococcal B Vaccine Aged Out No l onger eligible based on patient's age to complete this topic Medical Devices Implanted Type Area Needle Straightener Device Identifier Shelf Expiration Date Model / Serial / Lot Amery Patrick Loera C 5.5x19.1mm Ft Kntls Twist-In Clsd Eylt - [id number] Implanted:Qty: 1 on 07/08/2021 by Graham Borden MD at [facility] Left: Shoulder ARTHREX [id number] 01/01/2025 AR-2323B CC / / [id number] Amery Sut Fibertak Arscp Kntls 2 Fbrwr Cl - [id number] Implanted:Qty: 1 on 07/08/2021 by Graham Borden MD at [facility] Left: Shoulder ARTHREX [id number] 04/02/2026 AR-3638 / / [id number] Amery Sut Fibertak Arscp Kntls 2 Fbrwr Cl - [id number] Implanted:Qty: 1 on 07/08/2021 by Graham Borden MD at [facility] Left: Shoulder ARTHREX [id number] 04/02/2026 AR-3638 / / [id number] Sys Speedbridge Shldr W/Acc F/Rcuf Rpr - [id number] Implanted:Qty: 1 on 07/08/2021 by Graham Borden MD at [facility] Left: Shoulder ARTHREX [id number] 01/01/2025 AR-2600S BS-4 / / [id number] Graft 5x5cm Allopatch Hd Hum Tis 4.0-5.0mm - [id number] Implanted:Qty: 1 on 07/08/2021 by Graham Borden MD at [facility] Left: Shoulder MUSCULOSKELETAL TRANSPLANT FND 05/11/2024 [id number] / [id number] / [id number] Procedures Procedure Name Priority Date/Time Associated Diagnosis Comments GMED COLONOSCOPY Routine 02/22/2019 10:0 0 AM EDT from Last 3 Months or Most Recently Relevant to Health Maintenance Results * GMED COLONOSCOPY (02/22/2019 10:00 AM [...] MD GI PROCEDURE ORDERABLES Fin al Result [facility] [address] [id number] from Last 3 Months or Most Recently Relevant to Health Maintenance Insurance PPO FEDERAL PPO Member Subscriber Plan / Payer ( fective 2015-Present) Name:Tanvir Williamson Relation to Subscriber:Self Name:Tanvir Williamson Payer ID:[id number] (NAIC) Group ID:[id number] Type:Not on file Address: [id number] [place] [employer]AL PPO Advance Directives For more information, please contact: [phone] * Full Code (Latest Code Status on File) Date Activated Date Inactivated Comments 07/08/2021 8:01 AM 07/08/2021 4:05 PM Care Teams Ncr Operator Relationship Specialty Start Date End Date Aide Clay [address] [place] [address] [address] LIANE ELIZA [id number] PCP - General Family Medicine 12/10/18
--- OUTSIDE RECORDS SUMMARY | 2025-03-29 10:04 | XMS_ITS | Clinical Summary ---
Author Organization [facility] Address [facility] [place] [address] Phone Care Team Providers Care Social Security Specialist Name Role Phone Xenia Kendall Unavailable Conditions or Problems No information available. Medications No information available. Medications Administered No information available. Allergies, Adverse Reactions, Alerts No information available. Results No information available. Plan of Care No information available. Procedures No information available. Vital Signs No information available. Immunizations No information available. Advance Directives No information available.
== END 2025-03-28 23:59 ==
LOC: LAB.DROPOF 03-29 09:55
PROVIDERS: PCP Family Medicine; Visit Provider Family Medicine
DX: E03.9 Hypothyroidism, unspecified (principal); I10 Essential (primary) hypertension; Z12.5 Encounter for screening for malignant neoplasm of prostate
CPT/HCPCS: 80053; 84443; 85025; G0103